=== PATIENT | female | born 1965 | race Two or more races ===

== ENCOUNTER 2017-08-01 18:24 | Emergency (ER) | payer MEDICAID, OTHER, SELFPAY ==
[~2017-08-01] VITALS: Ht 157.5 cm; Wt 89.7 kg
[2017-08-01] MEDS ORDERED: ASPIRIN 81 MG TABLET CHEW PO ONE (19:00)
[2017-08-01] MEDS ORDERED: PLEASE ENTER ALLERGIES MC SCH (19:00)
[2017-08-01 19:09] LABS: BASOPHILS # (AUTO) 0.13 x10^3/uL (0-0.1); BASOPHILS % (AUTO) 1 % (0-1); EOSINOPHILS # (AUTO) 0.43 x10^3/uL (0-0.4); EOSINOPHILS % (AUTO) 4 % (1-7); LYMPHOCYTES # (AUTO) 3.27 x10^3/uL (1-3.4); LYMPHOCYTES % (AUTO) 33 % (22-44); MD NO; MEAN CORPUSCULAR HEMOGLOBIN 28.6 pg (27.0-34.8); MEAN CORPUSCULAR HGB CONC 33.2 g/dL (32.4-35.8); MEAN CORPUSCULAR VOLUME 86.1 fL (80-100); MEAN PLATELET VOLUME 7.9 fL (7.4-10.4); MONOCYTES # (AUTO) 0.73 x10^3/uL (0.2-0.8); MONOCYTES % (AUTO) 7 % (2-9); NEUTROPHILS # (AUTO) 5.34 x10^3/uL (1.8-6.8); NEUTROPHILS % (AUTO) 54 % (42-75); PLATELET COUNT 383 x10^3/uL (130-400); RED BLOOD COUNT 4.98 x10^6/uL (3.82-5.3); RED CELL DISTRIBUTION WIDTH 13.4 % (9.6-15.2)
[2017-08-01 19:19] LABS: ALBUMIN 3.7 g/dL (3.4-5.0); ANION GAP 6 mmol/L (5-15); CALCIUM 8.6 mg/dL (8.5-10.1); CHLORIDE 111 mmol/L (98-107); CREATININE 0.69 mg/dL (0.55-1.02)
[2017-08-01 19:24] LABS: TROPONIN I < 0.015 ng/mL (0.000-0.045)
[2017-08-01] MEDS ORDERED: ASPIRIN 81 MG TABLET CHEW ONE (20:26)
[2017-08-01 21:49] VITALS: BP 100/53
== END 2017-08-01 21:51 | disposition home or self-care (01) ==
LOC: ED 21:30
DX: J41.1 Mucopurulent chronic bronchitis (principal); Z90.710 Acquired absence of both cervix and uterus
CPT/HCPCS: 36415; 71046; 80048; 82040; 84484; 85025; 93005; 99285

== ENCOUNTER 2018-10-20 16:30 | Emergency (ER) | payer MEDICAID ==
[~2018-10-20] VITALS: Ht 157.5 cm; Wt 97.3 kg
[2018-10-20 18:36] VITALS: BP 114/69
== END 2018-10-20 19:14 | disposition home or self-care (01) ==
LOC: ED 18:29
DX: J20.9 Acute bronchitis, unspecified (principal); Z90.710 Acquired absence of both cervix and uterus
CPT/HCPCS: 36415; 71046; 80048; 83880; 84484; 85025; 93005; 99284; J7512; J7613

== ENCOUNTER 2020-04-22 23:18 | Emergency (ER) | payer MEDICAID ==
[~2020-04-22] VITALS: Ht 154.9 cm; Wt 96.4 kg
[2020-04-22] MEDS ORDERED: LIDOCAINE-MPF 1%, 5ML ONE (23:41)
[2020-04-23 00:27] VITALS: BP 136/80
--- NOTE | 2020-04-23 00:40 | NUR ---
TASK RN: Patient given discharge instructions and they have confirmed that they understand the instructions. Patient ambulatory with steady gait. NAD, DENIES ADDITIONAL QUESTIONS OR NEEDS AT THIS TIME. NO PERSONAL BELONGINGS LEFT IN ROOM AFTER DC.
== END 2020-04-23 00:56 | disposition home or self-care (01) ==
LOC: ED 23:48
DX: L02.213 Cutaneous abscess of chest wall (principal); L03.313 Cellulitis of chest wall; E78.00 Pure hypercholesterolemia, unspecified; Z90.710 Acquired absence of both cervix and uterus
CPT/HCPCS: 10060; 99284

== ENCOUNTER 2020-04-27 21:03 | Emergency (ER) | payer MEDICAID ==
[~2020-04-27] VITALS: Ht 162.6 cm; Wt 97.0 kg
[2020-04-27] MEDS ORDERED: LIDOCAINE 2%, 20ML SQ ONE (21:30)
[2020-04-27] MEDS ORDERED: CLINDAMYCIN PMX 600MG/50ML 50 ML IV ONE (21:30)
[2020-04-27] MEDS ORDERED: LIDOCAINE-MPF 1%, 5ML ONE ×3 (21:39→22:33)
[2020-04-27] MEDS ORDERED: L.E.T SOLUTION TP ONE (21:39)
[2020-04-27] MEDS ORDERED: HYDROmorphone 1 MG/ML, 1ML INJ ONE ×2 (21:47→22:33)
[2020-04-27] MEDS ORDERED: CLINDAMYCIN PMX 600MG/50ML 50 ML ONE (21:48)
[2020-04-27] MEDS: HYDROmorphone 1 MG/ML, 1ML INJ IVPush PRN ×2 (21:50→22:36)
[2020-04-27 21:51] LABS: BASOPHILS % (AUTO) 1 % (0-1); EOSINOPHILS % (AUTO) 5 % (1-7); LYMPHOCYTES % (AUTO) 36 % (22-44); MEAN CORPUSCULAR HEMOGLOBIN 28.6 pg (27.0-34.8); MEAN CORPUSCULAR HGB CONC 33.6 g/dL (32.4-35.8); MEAN PLATELET VOLUME 8.2 fL (7.4-10.4); MONOCYTES % (AUTO) 7 % (2-9); NEUTROPHILS % (AUTO) 52 % (42-75); PLATELET COUNT 327 x10^3/uL (130-400); RED BLOOD COUNT 5.02 x10^6/uL (3.82-5.3); RED CELL DISTRIBUTION WIDTH 13.3 % (9.6-15.2)
[2020-04-27 21:52] LABS: MD NO
[2020-04-27 22:01] LABS: ALBUMIN 3.9 g/dL (3.4-5.0); ANION GAP 7 mmol/L (5-15); CALCIUM 9.3 mg/dL (8.5-10.1); CHLORIDE 108 mmol/L (98-107); CREATININE 1.05 mg/dL (0.55-1.02)
[2020-04-27] MEDS ORDERED: LIDOCAINE 1%, 10ML INFIL ONE (22:30)
--- NOTE | 2020-04-27 23:12 | NUR ---
INCISION DRESSED WITH STERILE GAUZE.
[2020-04-27] MEDS ORDERED: ONDANSETRON 2MG/ML, 2ML ONE (23:51)
[2020-04-28] VITALS: BP 108/60
[2020-04-28] MEDS ORDERED: ONDANSETRON 2MG/ML, 2ML IVPush ONE
== END 2020-04-28 00:39 | disposition home or self-care (01) ==
LOC: ED 22:22
DX: L03.313 Cellulitis of chest wall (principal); L72.3 Sebaceous cyst; N61.1 Abscess of the breast and nipple; E78.00 Pure hypercholesterolemia, unspecified; Z90.710 Acquired absence of both cervix and uterus; R50.9 Fever, unspecified
CPT/HCPCS: 10060; 36415; 80048; 82040; 83605; 84145; 85025; 87040; 96365; 96375; 96376; 99284; J1170; J2405

== ENCOUNTER 2020-04-30 18:20 | Emergency (ER) | payer MEDICAID ==
[~2020-04-30] VITALS: Ht 157.5 cm; Wt 97.2 kg
[2020-04-30 18:27] VITALS: BP 140/72
[2020-04-30] MEDS ORDERED: KETOROLAC 30 MG/1 ML ONE (19:46)
[2020-04-30] MEDS ORDERED: KETOROLAC 30 MG/1 ML IM ONE (20:00)
[2020-04-30 20:16] LABS: MICROSCOPIC NOT IND
[2020-04-30 20:17] LABS: BASOPHILS % (AUTO) 1 % (0-1); EOSINOPHILS % (AUTO) 5 % (1-7); LYMPHOCYTES % (AUTO) 37 % (22-44); MEAN CORPUSCULAR HEMOGLOBIN 28.8 pg (27.0-34.8); MEAN CORPUSCULAR HGB CONC 33.9 g/dL (32.4-35.8); MEAN PLATELET VOLUME 7.8 fL (7.4-10.4); MONOCYTES % (AUTO) 7 % (2-9); NEUTROPHILS % (AUTO) 50 % (42-75); PLATELET COUNT 338 x10^3/uL (130-400); RED BLOOD COUNT 4.71 x10^6/uL (3.82-5.3); RED CELL DISTRIBUTION WIDTH 13.4 % (9.6-15.2)
[2020-04-30 20:22] LABS: MD NO
[2020-04-30 20:28] LABS: ALBUMIN 3.6 g/dL (3.4-5.0); ANION GAP 6 mmol/L (5-15); CALCIUM 9.4 mg/dL (8.5-10.1); CHLORIDE 110 mmol/L (98-107); CREATININE 0.75 mg/dL (0.55-1.02)
== END 2020-04-30 21:20 | disposition home or self-care (01) ==
LOC: ED 18:50
DX: S39.012A Strain of muscle, fascia and tendon of lower back, initial encounter (principal); Z48.01 Encounter for change or removal of surgical wound dressing; X58.XXXA Exposure to other specified factors, initial encounter; Y93.89 Activity, other specified; Y92.89 Other specified places as the place of occurrence of the external cause; Y99.8 Other external cause status
CPT/HCPCS: 36415; 80048; 81003; 82040; 85025; 96372; 99283; J1885